=== PATIENT | female | born 1995 | race African-American/Black ===

== ENCOUNTER 2018-06-17 07:25 | Emergency (ER) | payer OTHER ==
[~2018-06-17] VITALS: Ht 172.7 cm; Wt 65.0 kg
[2018-06-17] MEDS ORDERED: ACETAMINOPHEN 500 MG TAB PO ONE (08:00)
[2018-06-17 08:52] LABS: INFLUENZA A AMPLIFICATION NEGATIVE (NEGATIVE); INFLUENZA B AMPLIFICATION NEGATIVE (NEGATIVE)
[2018-06-17] MEDS ORDERED: AUGM875T28 PO (08:57)
[2018-06-17] MEDS ORDERED: IBUP80TA PO (08:57)
[2018-06-17] MEDS ORDERED: AUGMENTIN 875 MG TAB PO ONE (09:00)
[2018-06-17 09:07] VITALS: BP 118/65
== END 2018-06-17 09:10 | disposition home or self-care (01) ==
LOC: M ED 07:25
DX: H66.93 Otitis media, unspecified, bilateral (principal); J02.9 Acute pharyngitis, unspecified

== ENCOUNTER 2018-06-21 02:34 | Emergency (ER) | payer OTHER ==
[~2018-06-21] VITALS: Ht 172.7 cm; Wt 65.0 kg
[2018-06-21 02:34] VITALS: BP 119/67
[~2018-06-21 02:34] MED LIST: AUGM875T28 PO; IBUP80TA PO
== END 2018-06-21 03:57 | disposition left against medical advice (07) ==
LOC: M ED 02:34
DX: R10.9 Unspecified abdominal pain (principal); Z53.21 Procedure and treatment not carried out due to patient leaving prior to being seen by health care provider

== ENCOUNTER 2018-08-13 09:45 | Emergency (ER) | payer OTHER ==
[~2018-08-13] VITALS: Ht 170.2 cm; Wt 69.5 kg
[2018-08-13] MEDS ORDERED: KETOROLAC TROMETHAMINE 10 MG TAB PO ONE (11:00)
--- NOTE | 2018-08-13 11:55 | REP ---
LUMBOSACRAL SPINE SERIES: Five views of the lumbosacral spine performed. There is no compression fracture or malalignment with normal lumbar lordosis. There is no spondylolysis or spondylolisthesis. Disc spaces are well preserved. Posterior elements are intact. IMPRESSION: Negative lumbosacral spine series. Electronically Signed by Benson Dasilva MD 08/13/2018 02:13 P
[2018-08-13 12:09] VITALS: BP 127/64
== END 2018-08-13 12:11 | disposition home or self-care (01) ==
LOC: M ED 09:45
DX: G89.29 Other chronic pain (principal); M54.9 Dorsalgia, unspecified; Z87.59 Personal history of other complications of pregnancy, childbirth and the puerperium

== ENCOUNTER 2019-05-11 08:40 | Emergency (ER) | payer OTHER ==
[~2019-05-11] VITALS: Ht 170.2 cm; Wt 72.5 kg
[2019-05-11 10:26] LABS: BASO % 0.4 % (0.0-1.0); EOS # 0.1 10^3/uL (0.0-0.5); EOS % 0.6 % (0.0-3.0); HEMATOCRIT 36.7 % (36.0-47.0); HEMOGLOBIN 12.4 g/dl (12.0-15.5); LYMPH # 1.5 10^3/uL (1.5-5.0); LYMPH % 17.2 % (24.0-44.0); MEAN CORPUSCULAR HEMOGLOBIN 30.7 pg (27.0-33.0); MEAN CORPUSCULAR HGB CONC 33.8 g/dl (32.0-36.5); MEAN CORPUSCULAR VOLUME 90.8 fl (80.0-96.0); MONO # 0.7 10^3/uL (0.0-0.8); MONO % 8.3 % (0.0-5.0); NEUTROPHILS # 6.2 10^3/uL (1.5-8.5); PLATELET COUNT, AUTOMATED 228 10^3/uL (150-450); RED BLOOD COUNT 4.04 10^6/uL (4.00-5.40); WHITE BLOOD COUNT 8.5 10^3/uL (4.0-10.0)
[2019-05-11 10:58] LABS: ALBUMIN 4.6 GM/DL (3.2-5.2); ALT/SGPT 15 U/L (12-78); BILIRUBIN,TOTAL 0.4 MG/DL (0.2-1.0); BLOOD UREA NITROGEN 12 MG/DL (7-18); CALCIUM LEVEL 9.9 MG/DL (8.5-10.1); CARBON DIOXIDE LEVEL 25 MEQ/L (21-32); CHLORIDE LEVEL 104 MEQ/L (98-107); CREATININE FOR GFR 0.82 MG/DL (0.55-1.30); GLOMERULAR FILTRATION RATE > 60.0 (>60); GLUCOSE, FASTING 87 MG/DL (70-100); POTASSIUM SERUM 4.4 MEQ/L (3.5-5.1); SODIUM LEVEL 136 MEQ/L (136-145)
[2019-05-11] MEDS ORDERED: MIRA3350 PO (11:17)
[2019-05-11 11:28] VITALS: BP 111/80
== END 2019-05-11 11:28 | disposition home or self-care (01) ==
LOC: M ED 08:40
DX: O99.611 Diseases of the digestive system complicating pregnancy, first trimester (principal); Z3A.01 Less than 8 weeks gestation of pregnancy

== ENCOUNTER 2019-05-17 08:47 | Emergency (ER) | payer OTHER ==
[~2019-05-17] VITALS: Ht 170.2 cm; Wt 69.5 kg
[~2019-05-17 08:47] MED LIST changes: +MIRA3350 PO
[2019-05-17] MEDS ORDERED: PREN1CHW6 PO (08:52)
[2019-05-17 09:16] LABS: BASO % 0.3 % (0.0-1.0); EOS % 0.3 % (0.0-3.0); HEMATOCRIT 36.4 % (36.0-47.0); HEMOGLOBIN 12.3 g/dl (12.0-15.5); LYMPH # 1.4 10^3/uL (1.5-5.0); LYMPH % 15.1 % (24.0-44.0); MEAN CORPUSCULAR HEMOGLOBIN 30.6 pg (27.0-33.0); MEAN CORPUSCULAR HGB CONC 33.8 g/dl (32.0-36.5); MEAN CORPUSCULAR VOLUME 90.5 fl (80.0-96.0); MONO # 0.4 10^3/uL (0.0-0.8); MONO % 4.7 % (0.0-5.0); NEUTROPHILS # 7.5 10^3/uL (1.5-8.5); NEUTROPHILS % 79.4 % (36.0-66.0); PLATELET COUNT, AUTOMATED 227 10^3/uL (150-450); RED BLOOD COUNT 4.02 10^6/uL (4.00-5.40); WHITE BLOOD COUNT 9.4 10^3/uL (4.0-10.0)
--- NOTE | 2019-05-17 09:58 | REP ---
FIRST TRIMESTER ULTRASOUND: Real-time sonographic evaluation of pelvis performed. There is a single living intrauterine gestation. The estimated gestational age is 7 weeks 4 days based on a crown-rump length of 14 mm, EDC 12/30/2019. heart rate 157 beats per minute. A subchorionic hemorrhage is seen measuring 2.8 x 1.6 x 0.9 cm. There is a complex corpus luteum of the left ovary. This measures 2.1 cm in maximum diameter. Electronically Signed by Benson Dasilva MD 05/17/2019 06:29 P
[2019-05-17 11:19] LABS: CHLAMYDIA DNA AMPLIFICATION POSITIVE (NEGATIVE); GC DNA AMPLIFICATION NEGATIVE (NEGATIVE)
[2019-05-17] MEDS ORDERED: LIDOCAINE 1% SDV 5 ML VIAL DILUENT ONE (12:15)
[2019-05-17] MEDS ORDERED: cefTRIAXone SOD 250 MG VIAL (J0696) IM ONE (12:15)
[2019-05-17] MEDS ORDERED: AZITHROMYCIN 250 MG TAB PO ONE (12:15)
[2019-05-17 12:57] VITALS: BP 120/70
== END 2019-05-17 13:00 | disposition home or self-care (01) ==
LOC: M ED 08:47
DX: O98.311 Other infections with a predominantly sexual mode of transmission complicating pregnancy, first trimester (principal); O20.8 Other hemorrhage in early pregnancy; Z3A.01 Less than 8 weeks gestation of pregnancy; Z79.899 Other long term (current) drug therapy
CPT/HCPCS: 76801; 81001; 84702; 85025; 86850; 86900; 86901; 87210; 87491; 87591; 96372; 99284; J0696

== ENCOUNTER 2019-06-04 09:19 | Emergency (ER) | payer OTHER ==
[~2019-06-04] VITALS: Ht 170.2 cm; Wt 69.5 kg
[2019-06-04 09:19] VITALS: BP 113/60
[~2019-06-04 09:19] MED LIST changes: +PREN1CHW6 PO
[2019-06-04] MEDS ORDERED: METOCLOPRAMIDE 10 MG TAB PO ONE (09:45)
[2019-06-04] MEDS ORDERED: REGL10TA6 PO (10:23)
== END 2019-06-04 10:22 | disposition home or self-care (01) ==
LOC: M ED 09:19
DX: O21.0 Mild hyperemesis gravidarum (principal); Z3A.10 10 weeks gestation of pregnancy; Z79.899 Other long term (current) drug therapy